=== PATIENT | male | born 1985 | race Caucasian/White ===

== ENCOUNTER 2016-10-21 14:43 | Emergency (ER) | payer BC, OTHER ==
[~2016-10-21] VITALS: Ht 190.5 cm; Wt 160.0 kg
[2016-10-21 14:48] VITALS: TEMP 37.1; Ht 190.5 cm; Wt 160.0 kg
[2016-10-21 15:41] VITALS: O2SAT 98
[2016-10-21 15:48] LABS: BASO % 0.4 %; BASO ABS # 0.02 K/uL (0-0.2); COMPLETE YES; EOS % 2.6 %; HEMATOCRIT 44.3 % (42-52); IG% 0.7 %; LYMPH ABS # 1.67 K/uL (1.2-3.4); MEAN CELL VOLUME 84.4 fL (80-100); MEAN CORPUSCULAR HEMOGLOBIN 27.6 pg (25-34); MEAN CORPUSCULAR HGB CONC 32.7 g/dl (32-36); MEAN PLATELET VOLUME 9.2 fL (7.4-10.4); MONO % 11.5 %; NEUT % 53.8 %; PLATELET COUNT 201 K/uL (130-400); RED BLOOD COUNT 5.25 M/uL (4.7-6.1); WHITE BLOOD COUNT 5.38 K/uL (4.8-10.8)
[2016-10-21 16:06] LABS: BUN/CREATININE RATIO 15.2 (10-20); CALCIUM 9.3 mg/dl (8.5-10.1); CREATININE 1.1 mg/dl (0.60-1.40); MAGNESIUM 2.2 mg/dl (1.8-2.4)
[2016-10-21 16:11] LABS: CKMB/CK RATIO 0.4 (0-3.0)
--- NOTE | 2016-10-21 16:27 | EMERGENCY ROOM VISIT NOTE ---
History Report prepared by Kelsea: Lalitha Mohan Under the Supervision of: Dr. Sheryl Simeon M.D. 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 The patient states that he was feeling lightheaded and dizzy this morning. He was able to take his dogs for a walk, but his symptoms persisted. When he arrived at work he decided to check his blood pressure and it was elevated. reports that it was 170/90 and 180/100 PATIENT MANAGER. The patient denies any chest pain, shortness of breath, weakness, numbness, and difficulty speaking. He denies any recent weight gain. He also denies any recent increase in salt or alcohol intake. The patient works at the [employer] and states that the food there is often high is salt content. The patient was diagnosed with hypertension in the past and was taking a medication to control his blood pressure. He reports that the medication made him feel tired so he stopped taking it and never followed-up after that. He does not currently have a PCP and states that he dislikes going to the doctor. Source of History: patient, spouse/significant other Onset: PATIENT MANAGER Position: other (global) Symptom Intensity: BP 170/90 & 180/100 Quality: other (hypertension) Timing: constant Associated Symptoms: No chest pain, No SOB, No weakness, No numbness Note: Pt reports lightheadedness and dizziness. Review of Systems See HPI for pertinent positives & negatives. A total of 10 systems reviewed and were otherwise negative. Past Medical & Surgical Medical Problems: (1) Injury of lower back (2) Sprain of lumbar region Family History Diabetes mellitus Heart disease Hypertension Social History Smoking Status: Former Smoker Alcohol Use: occasionally Drug Use: none Marital Status: Housing Status: lives with significant other Occupation Status: employed Current/Historical Medications Scheduled Lisinopril (Prinivil), 5 MG PO DAILY Allergies Coded Allergies: No Known Allergies (Unverified , 10/21/16) Physical Exam Vital Signs Date Time Temp Pulse Resp B/P (MAP) Pulse Ox O2 Delivery O2 Flow Rate FiO2 10/21/16 16:42 72 16 126/81 98 Room Air 10/21/16 16:17 71 10/21/16 15:41 98 Room Air 10/21/16 15:32 70 20 152/95 99 Room Air 10/21/16 14:48 37.1 85 18 186/104 97 Room Air Physical Exam Vital signs reviewed. General: Well-appearing 31 year old male, in no significant distress. HEENT: No scleral icterus, PERRLA, neck supple. Atraumatic. Cardiovascular: Regular rate and rhythm, no extra sounds. Pulmonary: Clear to auscultation bilaterally, normal work of breathing. Abdomen: Soft, nontender, nondistended, positive bowel sounds. Musculoskeletal: Atraumatic, no peripheral edema. Neurologic: Patient awake alert and oriented x 3 Skin: Warm, dry, no rash Medical Decision & Procedures ER Provider Diagnostic Interpretation: Radiology results as stated below per my review and radiologist interpretation: CHEST 2 VIEWS ROUTINE HISTORY: 31 years-old Male acute hypertension COMPARISON: Chest and rib radiographs 11/09/2010 TECHNIQUE: Frontal and lateral views of the chest FINDINGS: Cardiomediastinal and hilar silhouettes are within normal limits. No pneumothorax, pleural effusion or focal airspace consolidation. Mild right hemidiaphragmatic elevation is redemonstrated. The bones are intact. IMPRESSION: No acute cardiopulmonary process. The above report was generated using voice recognition software. It may contain grammatical, syntax or spelling errors. Electronically signed by: Jin Gibson M.D. 10/21/2016 4:23 PM Dictated Date/Time: 10/21/2016 4:22 PM Laboratory Results 10/21/16 15:35 Red Blood Count 5.25, Mean Corpuscular Volume 84.4, Mean Corpuscular Hemoglobin 27.6, Mean Corpuscular Hemoglobin Concent 32.7, Mean Platelet Volume 9.2, Neutrophils (%) (Auto) 53.8, Lymphocytes (%) (Auto) 31.0, Monocytes (%) (Auto) 11.5, Eosinophils (%) (Auto) 2.6, Basophils (%) (Auto) 0.4, Neutrophils # (Auto ) 2.89, Lymphocytes # (Auto) 1.67, Monocytes # (Auto) 0.62, Eosinophils # (Auto ) 0.14, Basophils # (Auto) 0.02 10/21/16 15:35 Test 10/21/16 15:35 8/8/17 15:46 White Blood Count 5.38 K/uL (4.8-10.8) Red Blood Count 5.25 M/uL (4.7-6.1) Hemoglobin 14.5 g/dL (14.0-18.0) Hematocrit 44.3 % (42-52) Mean Corpuscular Volume 84.4 fL (80-100) Mean Corpuscular Hemoglobin 27.6 pg (25-34) Mean Corpuscular Hemoglobin Concent 32.7 g/dl (32-36) Platelet Count 201 K/uL (130-400) Mean Platelet Volume 9.2 fL (7.4-10.4) Neutrophils (%) (Auto) 53.8 % Lymphocytes (%) (Auto) 31.0 % Monocytes (%) (Auto) 11.5 % Eosinophils (%) (Auto) 2.6 % Basophils (%) (Auto) 0.4 % Neutrophils # (Auto) 2.89 K/uL (1.4-6.5) Lymphocytes # (Auto) 1.67 K/uL (1.2-3.4) Monocytes # (Auto) 0.62 K/uL (0.11-0.59) Eosinophils # (Auto) 0.14 K/uL (0-0.5) Basophils # (Auto) 0.02 K/uL (0-0.2) RDW Standard Deviation 40.2 fL (36.4-46.3) RDW Coefficient of Variation 13.2 % (11.5-14.5) Immature Granulocyte % (Auto) 0.7 % Immature Granulocyte # (Auto) 0.04 K/uL (0.00-0.02) Anion Gap 7.0 mmol/L (3-11) Est Creatinine Clear Calc Drug Dose 159.3 ml/min Estimated GFR () 103.9 Estimated GFR (Non- 89.6 BUN/Creatinine Ratio 15.2 (10-20) Calcium Level 9.3 mg/dl (8.5-10.1) Magnesium Level 2.2 mg/dl (1.8-2.4) Total Bilirubin 0.5 mg/dl (0.2-1) Direct Bilirubin 0.1 mg/dl (0-0.2) Aspartate Amino Transf (AST/SGOT) 35 U/L (15-37) Alanine Aminotransferase (ALT/SGPT) 56 U/L (12-78) Alkaline Phosphatase 68 U/L (45-117) Total Creatine Kinase 312 U/L (39-308) Creatine Kinase MB 1.4 ng/ml (0.5-3.6) Creatine Kinase MB Ratio 0.4 (0-3.0) Total Protein 7.2 gm/dl (6.4-8.2) Albumin 3.8 gm/dl (3.4-5.0) Bedside Troponin I < 0.030 ng/ml (0-0.045) Laboratory results per my review. Medications Administered Medications (Trade) Dose Ordered Sig/Luis Route Start Time Stop Time Status Last Admin Dose Admin Lisinopril (Zestril Tab) 5 mg NOW ONCE PO 10/21/16 16:45 10/21/16 16:46 DC 10/21/16 16:51 5 MG ECG Indication: other (lightheadedness) Rate (beats per minute): 72 Rhythm: normal sinus Findings: no acute ischemic change, no ectopy ED Course 152: Past medical records reviewed. The patient was evaluated in room B11B. A complete history and physical examination was performed. 1655: The patient was discharged home. He has a follow-up appointment with his PCP on Thursday. Medical Decision Differential diagnosis: Etiologies such as benign hypertension, hypertensive emergency, cardiovascular pathology, pheochromocytoma, electrolyte abnormality, renal disease, endorgan damage, as well as others were entertained. This patient was evaluated and appeared to be in no significant distress. IV access was obtained and laboratory work was drawn. Patient was placed on the monitoring specialist and found to be in a normal sinus rhythm. Patient's blood pressure has come down while resting in the emergency department. He admits he was supposed to be taking blood pressure pills many months ago, but stopped as he did not like the way they made him feel. The patient does not have a primary care physician established. The patient has previously seen [facility] and wishes to return. He was given a prescription for Norvasc 5 mg, first dose in the emergency department. He will take this medication once daily and follow-up with his PCP before in the week. Case management has helped arrange for follow-up appointment. Patient will return to the emergency department for worsening of symptoms or any medical concerns. Medication Reconcilliation Current Medication List: was personally reviewed by me Blood Pressure Screening Patient's blood pressure: Elevated blood pressure Blood pressure disposition: Referred to PCP Impression Primary Impression: Hypertension Scribe Attestation The scribe's documentation has been prepared under my direction and personally reviewed by me in its entirety. I confirm that the note above accurately reflects all work, treatment, procedures, and medical decision making performed by me. Departure Information Dispostion Home / Self-Care Prescriptions Lisinopril (Prinivil) 5 Mg Tab 5 MG PO DAILY, #30 TAB Prov: Sheryl Simeon M.D. 10/21/16 Referrals No Doctor, Assigned (PCP) Jet Amado M.D. (MEDICAL) Forms HOME CARE DOCUMENTATION FORM, IMPORTANT VISIT INFORMATION, WORK / SCHOOL INSTRUCTIONS Patient Instructions My [facility] Additional Instructions Diagnosis: Hypertension Lisinopril 5 mg daily. Maintain a low-sodium diet. Drink plenty of water. Follow-up with Dr. Amado as scheduled for you on Thursday. Return to the emergency department for worsening of symptoms or any medical concerns. Problem Qualifiers Primary Impression: Hypertension Hypertension type: unspecified Qualified Codes: I10 - Essential (primary) hypertension
[2016-10-21 16:42] VITALS: BP 126/81; PULSE 72; O2SAT 98
[2016-10-21] MEDS ORDERED: LISI-729 PO (16:42)
[2016-10-21] MEDS ORDERED: LISINOPRIL 5 MG TAB PO ONE (16:45)
== END 2016-10-21 16:56 | disposition home or self-care (01) ==
LOC: C.EDB 14:44
DX: I10 Essential (primary) hypertension (principal); Z87.891 Personal history of nicotine dependence; Z83.3 Family history of diabetes mellitus; Z82.49 Family history of ischemic heart disease and other diseases of the circulatory system

== ENCOUNTER 2016-11-20 14:50 | Emergency (ER) | payer OTHER ==
[~2016-11-20] VITALS: Ht 190.5 cm; Wt 150.6 kg
[~2016-11-20 14:50] MED LIST: LISI-729 PO
[2016-11-20 14:54] VITALS: TEMP 36.7; Ht 190.5 cm; Wt 150.6 kg
[2016-11-20] MEDS ORDERED: IBUPROFEN 600 MG TAB PO STA (15:11)
[2016-11-20] MEDS ORDERED: ACETAMINOPHEN 500 MG TAB PO STA (15:11)
--- NOTE | 2016-11-20 15:51 | DIAGNOSTIC IMAGING REPORT ---
RIGHT KNEE 3 VIEWS CLINICAL HISTORY: Right knee pain. COMPARISON: None FINDINGS: Alignment of the right knee is anatomic. No fracture or joint effusion is identified. No osseous lesion is identified. Joint spaces are preserved. There is slight irregularity of the superior pole of the patella at the insertion of quadriceps. IMPRESSION: No acute fracture or joint effusion of the right knee. Electronically signed by: Emiliano Ortiz M.D. 11/20/2016 3:49 PM Dictated Date/Time: 11/20/2016 3:49 PM
--- NOTE | 2016-11-20 16:11 | EMERGENCY ROOM VISIT NOTE ---
ED Visit Note First contact with patient: 14:58 CHIEF COMPLAINT: knee pain HISTORY OF PRESENT ILLNESS: This 31-year-old male patient presents to the emergency department after sustaining an injury to the right knee about 2 hours prior to arrival. The patient states that he was putting his shoe on when he twisted and felt immediate pain in the right lateral aspect of his knee. The patient denies any other injuries besides their knee. The patient no significant swelling or bruising. There is pain with ambulation. They rate the pain as dull and 5/10. The patient states they are not comfortably able to walk on it. No numbness or tingling. No previous injuries to this knee. No ankle, foot or hip pain. REVIEW OF SYSTEMS: A 6 system review of systems was completed with positives and pertinent negatives listed in the HPI. ALLERGIES: No known allergies MEDICATIONS: See EMR PMH: History of hypertension SOCIAL HISTORY: Lives locally. Employed. PHYSICAL EXAM: Vital Signs: Reviewed Nurse's notes, vital signs stable. GENERAL : White male, no acute distress, but appears in pain, well-developed, well- nourished. MENTAL STATUS: Alert, oriented to person place and time, and cooperative. MUSCULOSKELETAL: The right knee is not swollen. There is no ecchymosis. There is not joint effusion present. The patient is tender laterally. There is lateral joint line tenderness. The patella does not subluxate. Range of motion is not limited. Strength of the quads and hamstrings is 4/5. Jolie's is negative. Joselito's and Anterior Drawer tests are negative. There is no laxity with varus and valgus stressing. The foot and toes are warm and well-perfused. Dorsalis pedis pulse 2+. Sensation to pain and light touch is intact. Capillary refill less than 2 seconds. RIGHT KNEE 3 VIEWS CLINICAL HISTORY: Right knee pain. COMPARISON: None FINDINGS: Alignment of the right knee is anatomic. No fracture or joint effusion is identified. No osseous lesion is identified. Joint spaces are preserved. There is slight irregularity of the superior pole of the patella at the insertion of quadriceps. IMPRESSION: No acute fracture or joint effusion of the right knee. EMERGENCY DEPARTMENT COURSE: I examined the patient. X-rays of the right knee were reviewed by myself and read by radiology and reveal no fracture or dislocation. The patient is too large for a knee immobilizer, but will be instructed on estefani wrapping and use of crutches. He is to use [id number] analgesics and follow up with orthopedics with any ongoing or persistent symptoms. Problem List Medical Problems: (1) Injury of lower back Status: Resolved (2) Sprain of lumbar region Status: Resolved Current/Historical Medications Scheduled Lisinopril (Prinivil), 5 MG PO DAILY Allergies Coded Allergies: No Known Allergies (Unverified , 10/21/16) Vital Signs Date Time Temp Pulse Resp B/P (MAP) Pulse Ox O2 Delivery O2 Flow Rate FiO2 11/20/16 14:54 36.7 66 20 165/103 96 Room Air Medications Administered Medications (Trade) Dose Ordered Sig/Luis Route Start Time Stop Time Status Last Admin Dose Admin Acetaminophen (Tylenol Tab) 1,000 mg NOW STAT PO 11/20/16 15:11 11/20/16 15:12 DC 11/20/16 15:16 1,000 MG Ibuprofen (Motrin Tab) 600 mg NOW STAT PO 11/20/16 15:11 11/20/16 15:12 DC 11/20/16 15:16 600 MG Departure Information Impression Primary Impression: Right knee pain Dispostion Home / Self-Care Condition GOOD Referrals Demetri Chopra D.O. Forms HOME CARE DOCUMENTATION FORM, Work Instructions, Additional Instructions: Patient was seen and evaluated today in the emergency department fo medical care. Return to work on 11/23/2016. Please excuse IMPORTANT VISIT INFORMATION Patient Instructions My [facility] Additional Instructions You were seen and evaluated today on an emergency basis only. This is not a substitute for, or an effort to provide, complete comprehensive medical care. It is not possible to recognize and treat all injuries or illnesses in a single emergency department visit. For this reason it is recommended that you followup with orthopedics, Dr. Chopra's office, with any ongoing or persistent symptoms. For baseline pain relief you may alternate ibuprofen and acetaminophen every 4 hours for pain control. Take 600 mg ibuprofen (Advil) and then 4 hours later take 1000 mg acetaminophen (Tylenol). Do not take more than 3000 mg acetaminophen in a single day. Use your crutches for walking the next few days. Slowly advance activity as tolerated. You are welcome to return to the emergency department anytime with new, worsening, or concerning symptoms. Work Instructions Additional Work Instructions: Patient was seen and evaluated today in the emergency department for medical care. Return to work on 11/23/2016. Please excuse
[2016-11-20 16:29] VITALS: BP 166/89; PULSE 70; O2SAT 95
== END 2016-11-20 16:32 | disposition home or self-care (01) ==
LOC: C.EDB 14:51 → C.EDD 16:32
DX: S89.91XA Unspecified injury of right lower leg, initial encounter (principal); X50.0XXA Overexertion from strenuous movement or load, initial encounter; I10 Essential (primary) hypertension; Z79.899 Other long term (current) drug therapy

== ENCOUNTER → 2016-11-26 | Outpatient (CLI) | payer OTHER ==
--- NOTE | 2016-11-26 14:04 | DIAGNOSTIC IMAGING REPORT ---
MRI THE RIGHT KNEE NO CONTRAST CLINICAL HISTORY: Right knee pain status post trauma. Twisting injury. Unable to bear weight. COMPARISON STUDY: Conventional radiographic study dated 11/20/2016 FINDINGS: Imaging was performed in the sagittal, axial, and coronal planes. There is a moderate suprapatellar joint effusion. The anterior and posterior cruciate ligaments appear intact. The medial and lateral collateral ligaments appear intact. There are no areas of marrow edema to indicate occult fracture or bone bruise. No meniscal tears are visualized. There is mild patellar chondrosis. There is a 3 cm T2 hypointense structure located posterior to the lateral femoral condyle. This appears intra-articular. There is equivocal second lesion anterior to the anterior cruciate ligament. Diagnostic considerations include loose body versus PVNS versus organizing hematoma. IMPRESSION: 1. No evidence of occult fracture 2. No evidence of cruciate or collateral ligament disruption 3. No evidence of meniscal tear 4. Mild patellar chondrosis 5. 3 cm T2 hypointense intra-articular mass located posterior to the lateral femoral condyle. Diagnostic considerations include loose body versus PVNS versus organizing hematoma. Electronically signed by: Brennen Meraz M.D. 11/26/2016 2:03 PM Dictated Date/Time: 11/26/2016 1:46 PM
== END | disposition home or self-care (01) ==
LOC: C.MRI 12:36
PROVIDERS: ATTEND Physician Assistant
DX: M23.91 Unspecified internal derangement of right knee (principal); M22.41 Chondromalacia patellae, right knee; M25.861 Other specified joint disorders, right knee